=== PATIENT | male | born 1960 | race Caucasian/White ===

== ENCOUNTER 2023-01-23 10:36 | Emergency (ER) | payer MEDICARE ==
[~2023-01-23] VITALS: Ht 190.5 cm; Wt 106.6 kg
[2023-01-23 12:01] LABS: CLARITY,URINE TURBID (CLEAR); COLOR,URINE YELLOW (YELLOW); KETONES,URINE 2+ (NEGATIVE); LEUKOCYTE ESTERASE ,URINE LARGE (NEGATIVE); NITRITE,URINE POSITIVE (NEGATIVE); PROTEIN,URINE DIPSTICK 2+ (NEGATIVE); RBC,URINE >50 /HPF (0-5); URINE UROBILINOGEN 1 mg/dL (0.2 - 1); WBC,URINE (MAN) >50 /HPF (0-5)
[2023-01-23 12:02] LABS: BACTERIA,URINE MANY /HPF; EPITHELIAL CELLS,URINE FEW /LPF
[2023-01-23] MEDS ORDERED: CEFDINIR300 MG PO (12:13)
[2023-01-26] MEDS ORDERED: CIPRO500 MG PO (11:15)
[2023-01-26] MEDS ORDERED: PROTONIX20 MG PO (11:17)
[2023-01-26] MEDS ORDERED: DOCUSATE SODIU100 MG PO (11:18)
== END 2023-01-23 12:38 | disposition home or self-care (01) ==
LOC: ER 10:41
DX: N39.0 Urinary tract infection, site not specified (principal); Z88.1 Allergy status to other antibiotic agents
CPT/HCPCS: 81001; 87086; 87186; 99283

== ENCOUNTER 2023-01-23 20:39 | Inpatient (IN) | payer MEDICARE ==
[~2023-01-23] VITALS: Ht 190.5 cm; Wt 106.6 kg
[~2023-01-23 20:39] MED LIST: CEFDINIR300 MG PO
[2023-01-23] MEDS ORDERED: SODIUM CHLORIDE 0.9% 1000ML 1,000 ML IV STA (20:44)
[2023-01-23] MEDS ORDERED: ONDANSETRON HCL INJ 2MG/ML 2ML 2 MG/ML VIAL IV STA (20:47)
[2023-01-23] MEDS ORDERED: CIPROFLOXACIN 400 MG/D5W 200ML 200 ML IV ONE (22:00)
[2023-01-23 22:26] LABS: BASOPHILS % 0.1 % (0.0-1.0); HEMATOCRIT 48.6 % (38.2-49.6); HEMOGLOBIN 15.1 g/dL (14.0-18.0); LYMPHOCYTES # (AUTO) 0.4 (1.0-3.2); LYMPHOCYTES % 1.7 % (18.0-39.1); MEAN CORPUSCULAR HEMOGLOBIN 27.2 pg (28-32); MEAN CORPUSCULAR HGB CONC 31.1 g/dL (31-35); MEAN CORPUSCULAR VOLUME 87.6 fL (81-99); MONOCYTES % 4.8 % (4.4-11.3); NEUTROPHILS # (AUTO) 18.8 (2.1-6.9); PLATELET COUNT 210 x10e3/uL (140-360); RED BLOOD COUNT 5.55 x10e6/uL (4.3-5.7)
[2023-01-23 22:47] LABS: ALBUMIN 3.5 g/dL (3.5-5.0); ALBUMIN/GLOBULIN RATIO 0.8 (0.8-2.0); ANION GAP 18.6 mmol/L (8-16); CALCIUM 9.3 mg/dL (8.4-10.2); CREATININE, SERUM 0.58 mg/dL (0.72-1.25); POTASSIUM 3.6 mmol/L (3.5-5.1)
[2023-01-23] MEDS ORDERED: IOPAMIDOL 370 MG/ML 100 ML INFUS..BTL INJ ONE (23:31)
[2023-01-24] VITALS (8 sets, daily range): BP systolic 90–114; BP diastolic 52–77
[2023-01-24] MEDS ORDERED: IOPAMIDOL 370 MG/ML 100 ML INFUS..BTL INJ ONE (00:51)
[2023-01-24] MEDS ORDERED: Morphine 4mg INJECTION 4 MG/ML INJ IV PRN (01:15)
[2023-01-24] MEDS: SODIUM CHLORIDE 0.9% 1000ML 1,000 ML IV SCH ×3 (03:01→20:10)
[2023-01-24] MEDS: ONDANSETRON HCL INJ 2MG/ML 2ML 2 MG/ML VIAL IV PRN ×2 (05:54→13:09)
[2023-01-24] MEDS ORDERED: PROMETHAZINE 25MG/ NS 50ML (IV) IV PRN (11:45)
[2023-01-24] MEDS ORDERED: SODIUM CHLORIDE 0.9% 500ML 500 ML IV ONE (17:30)
[2023-01-24] MEDS: FAMOTIDINE 20 MG/2 ML VIAL IV SCH (20:10)
[2023-01-24] MEDS: BISACODYL 10 MG SUPP PR SCH (20:12)
[2023-01-25] VITALS (8 sets, daily range): BP systolic 72–105; BP diastolic 51–75
[2023-01-25] MEDS: SODIUM CHLORIDE 0.9% 1000ML 1,000 ML IV SCH ×4 (03:11→23:51)
[2023-01-25 06:39] LABS: ALBUMIN 2.4 g/dL (3.5-5.0); ALBUMIN/GLOBULIN RATIO 0.9 (0.8-2.0); CREATININE, SERUM 0.51 mg/dL (0.72-1.25)
[2023-01-25 06:44] LABS: BASOPHILS % 0.2 % (0.0-1.0); EOSINOPHILS # (AUTO) 0.1 (0.0-0.4); EOSINOPHILS % 0.4 % (0.0-6.0); HEMATOCRIT 34.1 % (38.2-49.6); HEMOGLOBIN 10.5 g/dL (14.0-18.0); LYMPHOCYTES # (AUTO) 1.1 (1.0-3.2); LYMPHOCYTES % 8.4 % (18.0-39.1); MEAN CORPUSCULAR HEMOGLOBIN 27.4 pg (28-32); MEAN CORPUSCULAR HGB CONC 30.8 g/dL (31-35); MONOCYTES % 7.8 % (4.4-11.3); NEUTROPHILS # (AUTO) 10.6 (2.1-6.9); NEUTROPHILS % 82.6 % (38.7-80.0); PLATELET COUNT 181 x10e3/uL (140-360); RED BLOOD COUNT 3.83 x10e6/uL (4.3-5.7); RED CELL DISTRIBUTION WIDTH 15.9 % (11.7-14.4)
[2023-01-25] MEDS: BISACODYL 10 MG SUPP PR SCH (09:01)
[2023-01-25] MEDS: FAMOTIDINE 20 MG/2 ML VIAL IV SCH (09:01)
[2023-01-25] MEDS: POTASSIUM CHLORIDE 20MEQ/100ML 100 ML IV SCH ×2 (09:02→10:33)
[2023-01-25] MEDS: SENNA-S TABLET PO SCH (17:58)
[2023-01-25] MEDS: DOCUSATE SODIUM 100 MG CAP PO SCH (17:58)
[2023-01-26 01:17] VITALS: BP 116/87
[2023-01-26 04:59] VITALS: BP 115/65
[2023-01-26] MEDS: SODIUM CHLORIDE 0.9% 1000ML 1,000 ML IV SCH (05:32)
[2023-01-26 06:28] LABS: BASOPHILS # (AUTO) 0.1 (0.0-0.1); BASOPHILS % 0.6 % (0.0-1.0); EOSINOPHILS # (AUTO) 0.3 (0.0-0.4); HEMATOCRIT 32.5 % (38.2-49.6); HEMOGLOBIN 10.3 g/dL (14.0-18.0); LYMPHOCYTES # (AUTO) 1.2 (1.0-3.2); LYMPHOCYTES % 13.5 % (18.0-39.1); MEAN CORPUSCULAR HEMOGLOBIN 29.3 pg (28-32); MEAN CORPUSCULAR HGB CONC 31.7 g/dL (31-35); MEAN CORPUSCULAR VOLUME 92.6 fL (81-99); MONOCYTES # (AUTO) 0.7 (0.2-0.8); MONOCYTES % 7.6 % (4.4-11.3); NEUTROPHILS # (AUTO) 6.6 (2.1-6.9); NEUTROPHILS % 74.8 % (38.7-80.0); PLATELET COUNT 149 x10e3/uL (140-360); RED BLOOD COUNT 3.51 x10e6/uL (4.3-5.7); RED CELL DISTRIBUTION WIDTH 16.6 % (11.7-14.4)
[2023-01-26 06:43] LABS: CALCIUM 7.7 mg/dL (8.4-10.2); CREATININE, SERUM 0.5 mg/dL (0.72-1.25)
[2023-01-26 08:00] VITALS: BP 118/68
[2023-01-26] MEDS ORDERED: POTASSIUM CHLORIDE 20 MEQ TAB CR PO ONE (08:30)
[2023-01-26] MEDS: DOCUSATE SODIUM 100 MG CAP PO SCH (08:56)
[2023-01-26] MEDS: SENNA-S TABLET PO SCH (08:56)
[2023-01-26] MEDS: FAMOTIDINE 20 MG/2 ML VIAL IV SCH (08:57)
[2023-01-26 09:20] VITALS: BP 118/66
[2023-01-26] MEDS ORDERED: CIPRO500 MG PO (11:15)
[2023-01-26] MEDS ORDERED: PROTONIX20 MG PO (11:17)
[2023-01-26] MEDS ORDERED: DOCUSATE SODIU100 MG PO (11:18)
[2023-01-26 12:25] VITALS: BP 135/74
== END 2023-01-26 17:30 | disposition home or self-care (01) | DRG 698 ==
LOC: ER 20:45 → ERHOLD 01-24 01:19 → MED/SURG3 01-24 06:58
PROVIDERS: ADMIT Family Medicine Adult Medicine; ATTEND Family Medicine Adult Medicine
PROC: 02HV33Z Insertion of Infusion Device into Superior Vena Cava, Percutaneous Approach (ICD-10-PCS; principal; 2023-01-24)
DX: T83.518A Infection and inflammatory reaction due to other urinary catheter, initial encounter (principal); G82.50 Quadriplegia, unspecified; K56.609 Unspecified intestinal obstruction, unspecified as to partial versus complete obstruction; N39.0 Urinary tract infection, site not specified; D64.9 Anemia, unspecified; K20.90 Esophagitis, unspecified without bleeding; N32.3 Diverticulum of bladder; Z88.1 Allergy status to other antibiotic agents; Z88.2 Allergy status to sulfonamides; Z20.822 Contact with and (suspected) exposure to COVID-19
CPT/HCPCS: 36415; 36569; 71045; 74022; 74177; 80048; 80053; 83605; 83690; 85025; 87040; 94799; 99284; J2270; J2405; J2543; J3480; J7030; J7040; Q9967